=== PATIENT | female | born 1940 | race Caucasian/White ===

== ENCOUNTER 2017-08-04 05:37 | Inpatient (IN) | payer OTHER ==
[2017-08-04] MEDS ORDERED: LIDOCAINE 1% 2 ML INJ ID PRN (05:49)
[2017-08-04] MEDS ORDERED: ceFAZolin 2 GM/DEXTROSE 100 ML IV ONE (05:49)
[2017-08-04] MEDS ORDERED: LR 1,000 ML IV ONE (05:49)
[2017-08-04] MEDS ORDERED: GABAPENTIN 300 MG CAP PO ONE (05:49)
[2017-08-04] MEDS ORDERED: ACETAMINOPHEN 500 MG TAB PO ONE (05:49)
[2017-08-04] MEDS ORDERED: BUPIVACAINE 0.25% 30 ML SDV ONE ×2 (06:42→07:41)
[2017-08-04] MEDS ORDERED: CHLORHEXIDINE GLUC HIBICLENS 118 ML BTL TP ONE (06:42)
[2017-08-04] MEDS ORDERED: THROMBIN (BOVINE) 5,000 UNIT VIAL TP ONE (06:42)
[2017-08-04] MEDS ORDERED: BACITRACIN 50,000 UNITS/10 ML SYR IRR ONE (06:42)
[2017-08-04] MEDS ORDERED: MIDAZOLAM 2 MG/2 ML VIAL IVP ONE (06:51)
--- NOTE | 2017-08-04 06:51 | PDANEPAE ---
ANE History of Present Illness C3-4 ACDF ANE Past Medical History - Cardiovascular History Hx Hypertension: Yes Hx Arrhythmias: No Hx Chest Pain: No Hx Coronary Artery / Peripheral Vascular Disease: No Hx CHF / Valvular Disease: No Hx Palpitations: No Cardiovascular History Comment: PCP MONITORS BP - Pulmonary History Hx COPD: Yes Hx Asthma/Reactive Airway Disease: No Hx Recent Upper Respiratory Infection: No Hx Oxygen in Use at Home: No Hx Sleep Apnea: No Sleep Apnea Screening Result - Last Documented: Negative Pulmonary History Comment: USES ADVAIR- INSTRUCTED PT TO BRING TO HOSPITAL - Neurologic History Hx Cerebrovascular Accident: Yes Hx Seizures: No Hx Dementia: No Neurologic History Comment: STROKE COMING OUT OF SURGERY IN 2011- 14H BACK SURGERY. PREVIOUS BACK SURGERIES X2. NUMBNESS TO PINKY FINGERS BILATERALLY. RESTLESS LEG SYNDROME - Endocrine History Hx Diabetes: No Endocrine History Comment: HYPOTHYROIDISM - Renal History Hx Renal Disorders: No - Liver History Hx Hepatic Disorders: No - Neurological & Psychiatric Hx Hx Neurological and Psychiatric Disorders: No - Cancer History Hx Cancer: No - Congenital Disorder History Hx Congenital Disorders: No - GI History Hx Gastrointestinal Disorders: Yes Gastrointestinal History Comment: REFLUX - Other Health History Other Health History: WEARS GLASSES - Chronic Pain History Chronic Pain: Yes (RLS, NECK AND BACK PAIN) - Surgical History Prior Surgeries: 14 HOUR BACK SURGERY 2011 @ [facility]. ANOTHER BACK SURGERY 2009-[facility] @ [facility]. RIGHT TKA. HYSTERECTOMY. HAND SURGERY X2 ANE Review of Systems Review of systems is: negative Review of Systems: - Exercise capacity Exercise capacity: >=4 METS METS (RN): 4 METS ANE Patient History - Allergies Allergies/Adverse Reactions: No Known Allergies Allergy (Verified 07/19/17 14:58) - Home Medications Home medications: home medication list seen and reviewed Home Medications: Aspirin [Aspirin 81mg (*)] 81 mg PO DAILY 07/13/17 [Last Taken Unknown] Atorvastatin Calcium [Lipitor 10 mg (*)] 10 mg PO DAILY 07/13/17 [Last Taken Unknown] DULoxetine [Cymbalta 60 MG (*)] 60 mg PO BID 07/13/17 [Last Taken Unknown] Fluticasone/Salmeter 100/50Mcg [Advair 100/50 (*)] 1 puffs IH BID 07/13/17 [ Last Taken Unknown] Gabapentin [Neurontin 300 MG (*)] 1,200 mg PO HS 07/13/17 [Last Taken Unknown] Gabapentin [Neurontin 300 MG (*)] 600 mg PO DAILY@12 07/13/17 [Last Taken Unknown] Herbals/Supplements -Info Only 1 ea PO DAILY 07/13/17 [Last Taken Unknown] Levothyroxine [Synthroid 125 mcg (*)] 125 mcg PO DAILY06 07/13/17 [Last Taken Unknown] amLODIPine BESYLATE [Norvasc 5 mg (*)] 5 mg PO DAILY 07/13/17 [Last Taken Unknown] rOPINIRole HCL [Requip 2mg (*)] 2 mg PO BID@,18 07/13/17 [Last Taken Unknown] rOPINIRole HCL [Requip 2mg (*)] 4 mg PO HS 07/13/17 [Last Taken Unknown] - NPO status NPO Status: no food or drink >8 hours NPO Since - Liquids (Date): 08/03/17 NPO Since - Liquids (Time): 23:00 NPO Since - Solids (Date): 08/03/17 NPO Since - Solids (Time): 18:00 - Smoking Hx Smoking Status: Former smoker - Family Anes Hx Family Hx Anesthesia Complications: NONE ANE Labs/Vital Signs - Vital Signs Blood Pressure: 116/75 Heart Rate: 78 Respiratory Rate: 16 O2 Sat (%): 94 Height: 158.75 cm Weight: 66.224 kg ANE Physical Exam - Airway Neck exam: decreased ROM Mallampati Score: Class 1 Mouth exam: normal dental/mouth exam - Pulmonary Pulmonary: no respiratory distress - Cardiovascular Cardiovascular: regular rate and rhythym - ASA Status ASA Status: III ANE Anesthesia Plan Anesthesia Plan: general endotracheal anesthesia
--- NOTE | 2017-08-04 06:58 | PDANEPAE ---
ANE History of Present Illness C3-4 ACDF ANE Past Medical History - Cardiovascular History Hx Hypertension: Yes Hx Arrhythmias: No Hx Chest Pain: No Hx Coronary Artery / Peripheral Vascular Disease: No Hx CHF / Valvular Disease: No Hx Palpitations: No Cardiovascular History Comment: PCP MONITORS BP - Pulmonary History Hx COPD: Yes Hx Asthma/Reactive Airway Disease: No Hx Recent Upper Respiratory Infection: No Hx Oxygen in Use at Home: No Hx Sleep Apnea: No Sleep Apnea Screening Result - Last Documented: Negative Pulmonary History Comment: USES ADVAIR- INSTRUCTED PT TO BRING TO HOSPITAL - Neurologic History Hx Cerebrovascular Accident: Yes Hx Seizures: No Hx Dementia: No Neurologic History Comment: STROKE COMING OUT OF SURGERY IN 2011- 14H BACK SURGERY. PREVIOUS BACK SURGERIES X2. NUMBNESS TO PINKY FINGERS BILATERALLY. RESTLESS LEG SYNDROME - Endocrine History Hx Diabetes: No Endocrine History Comment: HYPOTHYROIDISM - Renal History Hx Renal Disorders: No - Liver History Hx Hepatic Disorders: No - Neurological & Psychiatric Hx Hx Neurological and Psychiatric Disorders: No - Cancer History Hx Cancer: No - Congenital Disorder History Hx Congenital Disorders: No - GI History Hx Gastrointestinal Disorders: Yes Gastrointestinal History Comment: REFLUX - Other Health History Other Health History: WEARS GLASSES - Chronic Pain History Chronic Pain: Yes (RLS, NECK AND BACK PAIN) - Surgical History Prior Surgeries: 14 HOUR BACK SURGERY 2011 @ [facility]. ANOTHER BACK SURGERY 2010-[facility] @ [facility]. RIGHT TKA. HYSTERECTOMY. HAND SURGERY X2 ANE Review of Systems Review of Systems: - Exercise capacity METS (RN): 4 METS ANE Patient History - Allergies Allergies/Adverse Reactions: No Known Allergies Allergy (Verified 07/19/17 14:58) - Home Medications Home Medications: Aspirin [Aspirin 81mg (*)] 81 mg PO DAILY 07/13/17 [Last Taken Unknown] Atorvastatin Calcium [Lipitor 10 mg (*)] 10 mg PO DAILY 07/13/17 [Last Taken Unknown] DULoxetine [Cymbalta 60 MG (*)] 60 mg PO BID 07/13/17 [Last Taken Unknown] Fluticasone/Salmeter 100/50Mcg [Advair 100/50 (*)] 1 puffs IH BID 07/13/17 [ Last Taken Unknown] Gabapentin [Neurontin 300 MG (*)] 1,200 mg PO HS 07/13/17 [Last Taken Unknown] Gabapentin [Neurontin 300 MG (*)] 600 mg PO DAILY@12 07/13/17 [Last Taken Unknown] Herbals/Supplements -Info Only 1 ea PO DAILY 07/13/17 [Last Taken Unknown] Levothyroxine [Synthroid 125 mcg (*)] 125 mcg PO DAILY06 07/13/17 [Last Taken Unknown] amLODIPine BESYLATE [Norvasc 5 mg (*)] 5 mg PO DAILY 07/13/17 [Last Taken Unknown] rOPINIRole HCL [Requip 2mg (*)] 2 mg PO BID@,18 07/13/17 [Last Taken Unknown] rOPINIRole HCL [Requip 2mg (*)] 4 mg PO HS 07/13/17 [Last Taken Unknown] - NPO status NPO Since - Liquids (Date): 08/03/17 NPO Since - Liquids (Time): 23:00 NPO Since - Solids (Date): 08/03/17 NPO Since - Solids (Time): 18:00 - Smoking Hx Smoking Status: Former smoker - Family Anes Hx Family Hx Anesthesia Complications: NONE ANE Labs/Vital Signs - Vital Signs Blood Pressure: 116/75 Heart Rate: 78 Respiratory Rate: 16 O2 Sat (%): 94 Height: 158.75 cm Weight: 66.224 kg ANE Physical Exam - Airway Neck exam: decreased ROM Mallampati Score: Class 1 Mouth exam: normal dental/mouth exam - Pulmonary Pulmonary: no respiratory distress - Cardiovascular Cardiovascular: regular rate and rhythym - ASA Status ASA Status: III ANE Anesthesia Plan Anesthesia Plan: general endotracheal anesthesia
--- NOTE | 2017-08-04 07:05 | PDHPUP ---
History & Physical Update H&P update statement: This history and physical update is based on an assessment of the patient which was completed after admission or registration (within 24 hours), but prior to the surgery/procedure. H&P update: H&P reviewed & patient examined, no change in patient's condition since H&P completed
[2017-08-04] MEDS ORDERED: fentaNYL 100 MCG/2 ML INJ ONE ×2 (07:12→09:40)
[2017-08-04] MEDS ORDERED: HYDROmorphONE/DILAUDID 2 MG/ML INJ ONE (07:12)
[2017-08-04] MEDS ORDERED: DEXAMETHASONE 4 MG/ML VIAL ONE (07:12)
[2017-08-04] MEDS ORDERED: LIDOCAINE 2% 100 MG/5 ML SYR ONE (07:12)
[2017-08-04] MEDS ORDERED: ROCURONIUM 50 MG/5 ML VIAL ONE (07:12)
[2017-08-04] MEDS ORDERED: ONDANSETRON 4 MG/2 ML VIAL ONE ×2 (07:12→09:40)
[2017-08-04] MEDS ORDERED: PROPOFOL/EMULSION 500 MG/50 ML BOTTLE IV ONE (07:13)
[2017-08-04] MEDS ORDERED: REMIFENTANIL HCL 1 MG VIAL ONE (07:13)
[2017-08-04] MEDS ORDERED: PROPOFOL 200 MG/20 ML VIAL ONE (07:13)
[2017-08-04] MEDS ORDERED: PHENYLEPHRINE HCL 100 MCG/ML SYR ONE (07:34)
[2017-08-04] MEDS ORDERED: BUPIVACAINE 0.5% 30 ML SDV ONE (07:38)
[2017-08-04] MEDS ORDERED: LACTULOSE 20 GM/30 ML UDCUP PO PRN (09:07)
[2017-08-04] MEDS ORDERED: BISACODYL 10 MG SUPP PR PRN (09:07)
[2017-08-04] MEDS ORDERED: oxyCODONE IR 5 MG TAB PO PRN (09:07)
[2017-08-04] MEDS ORDERED: diphenhydrAMINE 25 MG CAP PO PRN (09:07)
[2017-08-04] MEDS ORDERED: MAGNESIUM HYDROXIDE 30 ML UDCUP PO PRN (09:07)
[2017-08-04] MEDS ORDERED: METHOCARBAMOL 750 MG TAB PO PRN (09:07)
[2017-08-04] MEDS ORDERED: ONDANSETRON DISINTEGRATING 4 MG TAB PO PRN (09:07)
[2017-08-04] MEDS ORDERED: ONDANSETRON 4 MG/2 ML VIAL IVP PRN ×2 (09:07→09:35)
--- NOTE | 2017-08-04 09:13 | SOAPPROG ---
BETSY Progress Note Assessment/Plan: Assessment: 76 yo F sp C3/4 ACDF Plan: stable hard collar ASHLI x 1 try to dc home later today please call with neuro changes 08/04/17 09:11 Subjective: + neck pain, no arm pain Objective: Vital Signs Temp Pulse Resp BP Pulse Ox 36.6 C 78 16 116/75 94 08/04/17 06:11 08/04/17 06:59 08/04/17 06:59 08/04/17 06:59 08/04/17 06:59 somnolent, PERRL, no facial droop 5/5 + light touch ICD10 Worksheet Patient Problems: Problems Problem Status Onset Fusion of spine, cervical region Acute - ICD10 Problem Qualifiers (1) Fusion of spine, cervical region
[2017-08-04] MEDS ORDERED: NS W/ 20 KCl/L 1,000 ML IV SCH (09:15)
[2017-08-04] MEDS ORDERED: DEXAMETHASONE 4 MG/ML VIAL IVP PRN (09:35)
[2017-08-04] MEDS ORDERED: OXYCODONE/APAP 5/325 TAB PO PRN (09:35)
[2017-08-04] MEDS ORDERED: LABETALOL HCL 50 MG/10 ML SYR IVP PRN (09:35)
[2017-08-04] MEDS ORDERED: HYDROmorphONE/DILAUDID 1 MG/ML INJ IVP PRN (09:35)
[2017-08-04] MEDS ORDERED: ACETAMINOPHEN 500 MG TAB PO PRN (09:35)
[2017-08-04] MEDS ORDERED: HYDROCODONE/APAP 5/325 TAB PO PRN (09:35)
[2017-08-04] MEDS ORDERED: MEPERIDINE 25 MG/ML SYR IVP PRN (09:35)
[2017-08-04] MEDS ORDERED: PROMETHAZINE HCL 25 MG/ML INJ IVP PRN (09:35)
[2017-08-04] MEDS ORDERED: NALOXONE HCL 0.4 MG/ML INJ IVP PRN (09:35)
--- NOTE | 2017-08-04 09:37 | POSTANESTH ---
Post Anesthetic Evaluation Cardiovascular Status: Normal, Stable, Similar to Pre-Op Cond Respiratory Status: Similar to Pre-op Cond. Level of Consciousness/Mental Status: Can Participate in Eval, Alert and Oriented Pain Control: Inadeq, Add Tx Required Nausea/Vomiting Control: Adequate, Prn Tx Ordered Complications Possibly Related to Anesthesia: None Noted
[2017-08-04] MEDS: fentaNYL 100 MCG/2 ML INJ IVP PRN ×3 (09:47→11:15)
--- NOTE | 2017-08-04 09:56 | GOP ---
[f rep st] OPERATIVE REPORT DATE OF OPERATION: 08/04/2017 SURGEON: Akil Tarango MD NEUROSURGEON: Akil Tarango MD. MACHINE OR MACHINERY MECHANIC: LÁZARO Salazar. ANESTHESIA: General endotracheal. 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 PROCEDURE PERFORMED: C3-4 anterior cervical diskectomy and arthrodesis with a 10-mm structural PEEK interbody spacer, local autograft, and demineralized bone matrix. Placement of a LnK CastleLoc-P 21- mm anterior cervical plate at C3-4. Use of intraoperative microscopy and fluoroscopy. FINDINGS: ESTIMATED BLOOD LOSS: Trace. INDICATIONS: The patient is a 76-year-old woman with neck pain and severe disk degeneration and keerthi apse with herniation and central canal stenosis and spinal cord compression at C3-4. She presents no w for surgical decompression and stabilization through a mini open approach. DESCRIPTION OF PROCEDURE: After informed consent was obtained, patient was taken to the operating ro om and placed in the supine position with the head in the Halter retractor system. The anterior cerv ical region was prepped and draped in a sterile fashion and after fluoroscopic localization of the co rrect levels, the subcutaneous and intramuscular tissues were infiltrated with local anesthesia. A horizontal incision was then created at the level of the C3-4 interspace. This was carried through the platysmal layer using the monopolar electrocautery and carried in the avascular plane between th e sternocleidomastoid and carotid sheath laterally and the strap muscles, trachea, and esophagus medi ally down to the prevertebral fascia, which was carefully incised with Metzenbaum scissors. The C3-4 interspace was identified and re-verified using intraoperative fluoroscopy. The Jerome distraction pins were carefully inserted and gentle distraction created across the disk sp talha. A complete diskectomy was then performed with preparation of the endplates and removal of the a nteriorly and posteriorly-protruding osteophytes, which were harvested for local autograft. The post erior longitudinal ligament was carefully removed and bilateral foraminotomies were performed. Metic ulous hemostasis was achieved in the disk space, and the area was copiously irrigated with antibiotic irrigation. The remaining endplates were carefully prepared and an appropriately-sized 10-mm structural PEEK inte rbody spacer packed with the local autograft and demineralized bone matrix in the center was placed u nder fluoroscopic image guidance. The distraction was removed and an appropriately sized 21-mm LnK C astleLoc-P anterior cervical plate was then placed and secured with self-drilling screws. Following re-verification of good position of the plate screws and interbody spacer, the locking mech anisms were engaged. The wound was again copiously irrigated with antibiotic irrigation. The remain ing demineralized bone matrix was placed in the anterior hole of the plate. A drain was placed. The study drug was infiltrated in the subcutaneous tissues, and the wound was closed in a layered fashio n using interrupted Vicryl sutures followed by Steri-Strips on the skin. COMPLICATIONS: None. DISPOSITION: The patient is currently in the process of being repositioned for extubation. Note that this patient is part of the dysphagia study protocol. /[id number]/MODL
[2017-08-04] MEDS ORDERED: HYDROmorphONE/DILAUDID 1 MG/ML INJ ONE (10:43)
[2017-08-04 11:33] VITALS: RESP 16
[2017-08-04] MEDS ORDERED: GABAPENTIN 300 MG CAP PO SCH ×2 (12:00→21:00)
[2017-08-04] MEDS ORDERED: ACETAMINOPHEN 500 MG TAB PO SCH (14:00)
[2017-08-04 14:59] VITALS: BP 134/87; PULSE 89; TEMP 97.7; O2SAT 95
[2017-08-04] MEDS ORDERED: POLYETHYLENE GLYCOL 3350 17 GM PKT PO SCH (16:00)
[2017-08-04] MEDS ORDERED: ceFAZolin 2 GM/DEXTROSE 100 ML IV SCH (16:00)
[2017-08-04] MEDS ORDERED: DULoxetine 60 MG CAP PO SCH (21:00)
[2017-08-04] MEDS ORDERED: SENNOSIDES/DOCUSATE SODIUM TAB PO SCH (21:00)
[2017-08-04] MEDS ORDERED: FAMOTIDINE 20 MG TAB PO SCH (21:00)
[2017-08-04] MEDS ORDERED: FLUTICASONE/SALMETER 100/50MCG DISKUS IH SCH (21:00)
[2017-08-05] MEDS ORDERED: LEVOTHYROXINE 125 MCG TAB PO SCH (06:00)
[2017-08-05] MEDS ORDERED: ATORVASTATIN CALCIUM 10 MG TAB PO SCH (09:00)
[2017-08-05] MEDS ORDERED: amLODIPine BESYLATE 5 MG TAB PO SCH (09:00)
[2017-08-05] MEDS ORDERED: ENOXAPARIN 40 MG/0.4 ML SYR SC SCH (09:00)
--- NOTE | 2017-08-05 10:42 | ASDISCHSUM ---
Discharge Information Plan Status:Home with No Needs Medically Cleared to Leave: Discharge Date:08/04/2017 05:36 PM CM D/C Disposition:Home, Routine, Self-Care ADT D/C Disposition:Home, Routine, Self-Care Projected Discharge Date:08/04/2017 05:36 PM Transportation at D/C: Discharge Delay Reason: Follow-Up Date:08/04/2017 05:36 PM Discharge Slot: Final Diagnosis: Placement Information Patient Contact Information Contact Name:MAKSIMMAYA Relationship: Address:[id number] [place] [address] Work Phone: City:[place] Alternate Phone: [facility]/Zip Code:[place] [address] Email: Financial Information Financial Class:Medicare Advantage Plans Primary Plan Desc:[employer] CHOICE PPO MEDICARE Primary Plan Number:[id number] Secondary Plan Desc: Secondary Plan Number: Assessment Information Intervention Information
[2017-08-07] MEDS ORDERED: ENOXAPARIN 40 MG/0.4 ML SYR SC SCH (09:00)
== END 2017-08-04 17:36 | disposition home or self-care (01) | DRG 473 ==
LOC: F3N 05:37
PROVIDERS: ADMIT Neurological Surgery; ATTEND Neurological Surgery
PROC: 0RT30ZZ Resection of Cervical Vertebral Disc, Open Approach (ICD-10-PCS; principal; 2017-08-04 07:15)
PROC: 4A10X4G Monitoring of Central Nervous Electrical Activity, Intraoperative, External Approach (ICD-10-PCS; principal; 2017-08-04 07:15)
PROC: 0RG10A0 Fusion of Cervical Vertebral Joint with Interbody Fusion Device, Anterior Approach, Anterior Column, Open Approach (ICD-10-PCS; principal; 2017-08-04 07:15)
DX: M48.02 Spinal stenosis, cervical region (principal); J44.9 Chronic obstructive pulmonary disease, unspecified; K21.9 Gastro-esophageal reflux disease without esophagitis; I10 Essential (primary) hypertension; E03.9 Hypothyroidism, unspecified; Z98.1 Arthrodesis status; Z86.73 Personal history of transient ischemic attack (TIA), and cerebral infarction without residual deficits; Z96.651 Presence of right artificial knee joint; Z87.891 Personal history of nicotine dependence
CPT/HCPCS: C1713; J0171; J0690; J1100; J1170; J2001; J2250; J2370; J2405; J2704; J3010